=== PATIENT | female | born 1950 | race Caucasian/White ===

== ENCOUNTER 2018-03-21 14:52 | Inpatient (IN) | payer MEDICARE ==
[~2018-03-21] VITALS: Ht 154.9 cm; Wt 55.9 kg
[~2018-03-21 14:52] MED LIST: BACL10TA PO
[2018-03-21] MEDS ORDERED: ONDANSETRON HCL 4 MG/2 ML VIAL ONE (15:35)
[2018-03-21] MEDS ORDERED: MORPHINE SULFATE 4 MG/1ML SYG ONE ×2 (15:36→18:13)
[2018-03-21 15:41] LABS: BASOPHILS % (AUTO) 1.3 % (0.0-5.0); EOSINOPHILS % (AUTO) 0.7 % (0.0-8.0); HEMATOCRIT 36.2 % (36-48); MEAN CORPUSCULAR HEMOGLOBIN 33.1 pg (27.0-33.0); MEAN CORPUSCULAR VOLUME 97.3 fL (79-99); MONOCYTES % (AUTO) 7.5 % (3.0-13.0); NEUTROPHILS % (AUTO) 58.5 % (40.0-77.0); PLATELET COUNT (AUTO) 402 K/uL (130-400); RED BLOOD CELL COUNT(AUTO) 3.72 MIL/uL (4.00-5.50); RED CELL DISTRIBUTION WIDTH 16.6 % (11.0-15.5); WHITE BLOOD COUNT (AUTO) 6.7 K/uL (4.8-10.8)
[2018-03-21 16:02] LABS: APPEARANCE,URINE Clear (CLEAR); BILIRUBIN,URINE Negative (NEGATIVE); COLOR,URINE Yellow (YELLOW); GLUCOSE, URINE (UA) Negative (NEGATIVE); KETONES,URINE Negative (NEGATIVE); LEUKOCYTE ESTERASE ,URINE Trace (NEGATIVE); NITRATE,URINE Negative (NEGATIVE); OCCULT BLOOD,URINE Negative (NEGATIVE); PROTEIN,URINE Negative (NEGATIVE); UROBILINOGEN,URINE 0.2 mg/dL (0.2-1.0)
[2018-03-21 16:13] LABS: CREATININE 1.1 mg/dL (0.5-1.5); POTASSIUM 3.7 mmol/L (3.5-5.1)
[2018-03-21 16:45] LABS: BACTERIA,URINE Rare /HPF (None Seen); RBC,URINE 0-1 /HPF (0-1); SQUAMOUS EPITHELIAL CELL,UR Few /HPF (0-2); WBC,URINE 0-1 /HPF (0-1)
[2018-03-21 17:12] LABS: ERYTHROCYTE SEDIMENTATION RATE 25 MM/HR (0-15)
[2018-03-21] MEDS ORDERED: LORAZEPAM 2 MG/ML 1 ML VIAL ONE (18:13)
[2018-03-21 22:00] VITALS: BP 139/80
[2018-03-21] MEDS ORDERED: ACETAMINOPHEN 325 MG TAB PO PRN (22:45)
[2018-03-21] MEDS ORDERED: ONDANSETRON HCL MDV 20ML 2 MG/ML VIAL IVP PRN (22:45)
[2018-03-21] MEDS ORDERED: CLONIDINE HCL 0.1 MG TABLET PO PRN (22:45)
[2018-03-21] MEDS ORDERED: LACTULOSE 20 GM/30 ML UDCUP PO PRN (22:45)
[2018-03-21] MEDS: MORPHINE SULFATE 2 MG/ML 1ML SYG IM PRN (23:10)
[2018-03-22 00:10] VITALS: BP 131/77
[2018-03-22] MEDS ORDERED: BACL10TA PO (01:51)
[2018-03-22] MEDS ORDERED: ZOLP10TA2 PO (01:53)
[2018-03-22] MEDS ORDERED: LEVE1000 PO (01:56)
[2018-03-22] MEDS: KETOROLAC TROMETHAMINE 15MG/ML IV PRN ×2 (03:12→17:33)
[2018-03-22 03:15] VITALS: BP 112/62
[2018-03-22] MEDS: MORPHINE SULFATE 2 MG/ML 1ML SYG IM PRN (05:21)
[2018-03-22 08:01] VITALS: BP 136/72
[2018-03-22] MEDS: LEVETIRACETAM 500 MG TABLET PO SCH ×3 (09:00→20:03)
[2018-03-22] MEDS: BACLOFEN 10 MG TABLET PO SCH ×7 (09:00→20:03)
[2018-03-22 11:28] VITALS: BP 122/72
[2018-03-22] MEDS ORDERED: BACLOFEN 10 MG TABLET PO SCH ×2 (12:00→21:00)
[2018-03-22] MEDS ORDERED: MORPHINE SULFATE 4 MG/1ML SYG ONE ×2 (12:57→18:33)
[2018-03-22] MEDS: LORAZEPAM 2 MG/ML 1 ML VIAL IVP PRN (14:06)
[2018-03-22 15:54] VITALS: BP 121/63
[2018-03-22] MEDS ORDERED: FAMOTIDINE 20MG TAB 20 MG TAB PO SCH (17:15)
[2018-03-22 20:00] VITALS: BP 138/75
[2018-03-22] MEDS: GABAPENTIN 300 MG CAPSULE PO SCH (20:03)
[2018-03-22] MEDS: ZOLPIDEM TARTRATE 5 MG TAB PO SCH (20:03)
[2018-03-23] VITALS: BP 112/72
[2018-03-23] MEDS: LORAZEPAM 2 MG/ML 1 ML VIAL IVP PRN (02:16)
[2018-03-23 04:03] VITALS: BP 95/53
[2018-03-23 07:44] VITALS: BP 123/64
[2018-03-23] MEDS: FAMOTIDINE 20MG TAB 20 MG TAB PO SCH (08:22)
[2018-03-23] MEDS: KETOROLAC TROMETHAMINE 15MG/ML IV PRN ×2 (08:22→15:12)
[2018-03-23] MEDS: LEVETIRACETAM 500 MG TABLET PO SCH ×2 (08:22→19:35)
[2018-03-23] MEDS: BACLOFEN 10 MG TABLET PO SCH ×3 (08:22→19:34)
[2018-03-23] MEDS: DIAZEPAM 5 MG TABLET PO PRN ×2 (09:11→16:53)
[2018-03-23 11:25] VITALS: BP 94/49
[2018-03-23] MEDS: MORPHINE SULFATE 2 MG/ML 1ML SYG IM PRN (11:58)
[2018-03-23 16:30] VITALS: BP 113/64
[2018-03-23] MEDS ORDERED: ONDANSETRON HCL 4 MG/2 ML VIAL ONE (19:30)
[2018-03-23] MEDS: GABAPENTIN 300 MG CAPSULE PO SCH (19:34)
[2018-03-23] MEDS: ZOLPIDEM TARTRATE 5 MG TAB PO SCH (19:35)
[2018-03-23 20:05] VITALS: BP 103/63
[2018-03-24] VITALS (7 sets, daily range): BP systolic 94–112; BP diastolic 53–64
[2018-03-24] MEDS: LORAZEPAM 2 MG/ML 1 ML VIAL IVP PRN ×2 (00:46→14:04)
[2018-03-24] MEDS: KETOROLAC TROMETHAMINE 15MG/ML IV PRN ×4 (01:32→23:11)
[2018-03-24 06:05] LABS: HEMATOCRIT 32.4 % (36-48); MEAN CORPUSCULAR HGB CONC 34.8 g/dL (32.0-36.0); MEAN CORPUSCULAR VOLUME 97.5 fL (79-99); NUCLEATED RED BLOOD CELLS 0.1 % (0.0-0.19); PLATELET COUNT (AUTO) 314 K/uL (130-400); RED BLOOD CELL COUNT(AUTO) 3.32 MIL/uL (4.00-5.50); RED CELL DISTRIBUTION WIDTH 15.9 % (11.0-15.5); WHITE BLOOD COUNT (AUTO) 5.1 K/uL (4.8-10.8)
[2018-03-24 06:13] LABS: CREATININE 0.9 mg/dL (0.5-1.5); POTASSIUM 3.7 mmol/L (3.5-5.1)
[2018-03-24] MEDS: FAMOTIDINE 20MG TAB 20 MG TAB PO SCH (08:48)
[2018-03-24] MEDS: BACLOFEN 10 MG TABLET PO SCH ×3 (08:48→18:57)
[2018-03-24] MEDS: LEVETIRACETAM 500 MG TABLET PO SCH ×2 (08:48→18:57)
[2018-03-24] MEDS: DIAZEPAM 5 MG TABLET PO PRN ×2 (08:56→17:29)
[2018-03-24] MEDS: MORPHINE SULFATE 2 MG/ML 1ML SYG IM PRN ×2 (10:08→19:15)
[2018-03-24] MEDS: GABAPENTIN 300 MG CAPSULE PO SCH (18:57)
[2018-03-24] MEDS: ZOLPIDEM TARTRATE 5 MG TAB PO SCH (18:57)
[2018-03-25] MEDS: MORPHINE SULFATE 2 MG/ML 1ML SYG IM PRN (00:13)
[2018-03-25 03:20] VITALS: BP 108/54
[2018-03-25] MEDS: MORPHINE SULFATE 2 MG/ML 1ML SYG IVP PRN ×4 (05:30→22:19)
[2018-03-25] MEDS: KETOROLAC TROMETHAMINE 15MG/ML IV PRN (06:10)
[2018-03-25 07:30] VITALS: BP 145/73
[2018-03-25] MEDS: BACLOFEN 10 MG TABLET PO SCH ×3 (07:35→19:48)
[2018-03-25] MEDS: LEVETIRACETAM 500 MG TABLET PO SCH ×2 (07:35→19:48)
[2018-03-25] MEDS: FAMOTIDINE 20MG TAB 20 MG TAB PO SCH (07:35)
[2018-03-25] MEDS: DIAZEPAM 5 MG TABLET PO PRN ×2 (07:36→16:45)
[2018-03-25 11:00] VITALS: BP 111/62
[2018-03-25] MEDS ORDERED: VENLAFAXINE HCL 75 MG TAB ONE (11:15)
[2018-03-25] MEDS: VENLAFAXINE HCL XR 37.5 MG CAP PO SCH (14:12)
[2018-03-25 16:00] VITALS: BP 109/63
[2018-03-25] MEDS: GABAPENTIN 300 MG CAPSULE PO SCH (19:48)
[2018-03-25] MEDS: ZOLPIDEM TARTRATE 5 MG TAB PO SCH (19:48)
[2018-03-25 20:00] VITALS: BP 137/76
[2018-03-26] VITALS: BP 117/71
[2018-03-26] MEDS: ACETAMINOPHEN 325 MG TAB PO PRN ×2 (03:03→10:40)
[2018-03-26] MEDS: KETOROLAC TROMETHAMINE 15MG/ML IV PRN ×2 (03:09→18:03)
[2018-03-26 04:00] VITALS: BP 137/79
[2018-03-26] MEDS: MORPHINE SULFATE 2 MG/ML 1ML SYG IVP PRN ×2 (06:42→20:04)
[2018-03-26 08:03] VITALS: BP 120/73
[2018-03-26] MEDS: DIAZEPAM 5 MG TABLET PO PRN ×2 (10:39→16:25)
[2018-03-26] MEDS: FAMOTIDINE 20MG TAB 20 MG TAB PO SCH (10:40)
[2018-03-26] MEDS: BACLOFEN 10 MG TABLET PO SCH ×3 (10:41→20:04)
[2018-03-26] MEDS: LEVETIRACETAM 500 MG TABLET PO SCH ×2 (10:41→20:04)
[2018-03-26] MEDS: VENLAFAXINE HCL XR 37.5 MG CAP PO SCH (10:41)
[2018-03-26 15:47] VITALS: BP 128/73
[2018-03-26 20:04] VITALS: BP 146/84
[2018-03-26] MEDS: GABAPENTIN 300 MG CAPSULE PO SCH (20:04)
== END 2018-03-26 20:22 | disposition short-term general hospital (02) | DRG 552 ==
LOC: EDH 14:52 → EDHIP 17:40 → OBSVTOIN 17:40 → WSH 22:00 → 4AH 03-22 08:45
PROVIDERS: ADMIT Family Medicine; ATTEND Family Medicine
DX: M48.061 Spinal stenosis, lumbar region without neurogenic claudication (principal); M41.9 Scoliosis, unspecified; F41.1 Generalized anxiety disorder; G40.909 Epilepsy, unspecified, not intractable, without status epilepticus; M54.10 Radiculopathy, site unspecified; Z86.73 Personal history of transient ischemic attack (TIA), and cerebral infarction without residual deficits
CPT/HCPCS: 36415; 72110; 72148; 80048; 81001; 85025; 85027; 85651; J1885; J2060; J2270; J2405

== ENCOUNTER 2018-04-01 15:21 | Inpatient (IN) | payer MEDICARE ==
[~2018-04-01] VITALS: Ht 157.5 cm; Wt 54.4 kg
[~2018-04-01 15:21] MED LIST changes: +LEVE1000 PO; +ZOLP10TA2 PO
[2018-04-01] MEDS ORDERED: KETOROLAC TROMETHAMINE 30MG/ML ONE (15:58)
[2018-04-01 18:40] LABS: BASOPHILS % (AUTO) 0.8 % (0.0-5.0); EOSINOPHILS % (AUTO) 1.5 % (0.0-8.0); HEMATOCRIT 38.1 % (36-48); LYMPHOCYTES % (AUTO) 21.5 % (21.0-51.0); MEAN CORPUSCULAR HEMOGLOBIN 32.6 pg (27.0-33.0); MEAN CORPUSCULAR HGB CONC 33.7 g/dL (32.0-36.0); MEAN CORPUSCULAR VOLUME 96.7 fL (79-99); MONOCYTES % (AUTO) 9.1 % (3.0-13.0); NEUTROPHILS % (AUTO) 67.1 % (40.0-77.0); PLATELET COUNT (AUTO) 360 K/uL (130-400); RED BLOOD CELL COUNT(AUTO) 3.95 MIL/uL (4.00-5.50); RED CELL DISTRIBUTION WIDTH 15.5 % (11.0-15.5); WHITE BLOOD COUNT (AUTO) 7.8 K/uL (4.8-10.8)
[2018-04-01] MEDS ORDERED: ZIPRASIDONE MESYLATE 20 MG/VIAL IM ONE ×2 (18:44→18:46)
[2018-04-01 18:46] LABS: CREATININE 1.1 mg/dL (0.5-1.5); POTASSIUM 4.1 mmol/L (3.5-5.1)
[2018-04-01 18:51] LABS: ALBUMIN 3.5 g/dL (3.5-5.0); BILIRUBIN,TOTAL 0.6 mg/dL (0.2-1.0); TOTAL PROTEIN, SERUM 7.3 g/dL (6.0-8.3)
[2018-04-02 05:50] LABS: ALBUMIN 3.1 g/dL (3.5-5.0); BILIRUBIN,TOTAL 0.6 mg/dL (0.2-1.0); CREATININE 0.8 mg/dL (0.5-1.5); POTASSIUM 3.6 mmol/L (3.5-5.1); TOTAL PROTEIN, SERUM 6.6 g/dL (6.0-8.3)
[2018-04-02 06:20] LABS: BASOPHILS % (AUTO) 0.6 % (0.0-5.0); EOSINOPHILS % (AUTO) 1.3 % (0.0-8.0); MEAN CORPUSCULAR HEMOGLOBIN 33.3 pg (27.0-33.0); MEAN CORPUSCULAR HGB CONC 34.3 g/dL (32.0-36.0); MEAN CORPUSCULAR VOLUME 97.1 fL (79-99); MONOCYTES % (AUTO) 8.1 % (3.0-13.0); PLATELET COUNT (AUTO) 308 K/uL (130-400); RED CELL DISTRIBUTION WIDTH 15.3 % (11.0-15.5); WHITE BLOOD COUNT (AUTO) 8.5 K/uL (4.8-10.8)
[2018-04-02 07:45] VITALS: BP 143/63
[2018-04-02] MEDS: SODIUM CHLORIDE 0.9% 1000ML 1,000 ML IV SCH ×2 (08:35→20:48)
[2018-04-02] MEDS: FAMOTIDINE/PF 20 MG/2 ML VIAL IV SCH ×2 (09:26→20:50)
[2018-04-02] MEDS: ENOXAPARIN SODIUM 40 MG/0.4 ML SYRINGE SQ SCH (09:26)
[2018-04-02] MEDS ORDERED: BACL10TA PO (11:11)
[2018-04-02] MEDS ORDERED: LEVE10006 PO (11:11)
[2018-04-02] MEDS ORDERED: GABA-531 PO (11:11)
[2018-04-02] MEDS ORDERED: ZOLP5TAB8 PO (11:11)
[2018-04-02] MEDS ORDERED: DIAZ10TA4 PO (11:11)
[2018-04-02] MEDS ORDERED: VENL150T3 PO (11:11)
[2018-04-02] MEDS ORDERED: ACET1TAB27 PO (11:11)
[2018-04-02] MEDS ORDERED: DIAZEPAM 5 MG TABLET PO PRN (11:45)
[2018-04-02 12:00] VITALS: BP 145/48
[2018-04-02] MEDS: GABAPENTIN 300 MG CAPSULE PO SCH ×2 (14:39→20:49)
[2018-04-02] MEDS: BACLOFEN 10 MG TABLET PO SCH ×2 (14:39→20:49)
[2018-04-02 16:00] VITALS: BP 135/75
[2018-04-02 19:15] VITALS: BP 138/75
[2018-04-02] MEDS: ZOLPIDEM TARTRATE 5 MG TAB PO SCH (20:49)
[2018-04-02] MEDS: LEVETIRACETAM 500 MG TABLET PO SCH (20:49)
[2018-04-03 05:30] VITALS: BP 106/67
[2018-04-03 08:00] VITALS: BP 104/60
[2018-04-03] MEDS ORDERED: VENLAFAXINE HCL 150 MG PO SCH (09:00)
[2018-04-03] MEDS ORDERED: VENLAFAXINE HCL XR 150 MG CAP PO SCH (09:00)
[2018-04-03] MEDS ORDERED: ACETAMINOPHEN PO PRN (09:00)
[2018-04-03] MEDS ORDERED: COD PO PRN (09:00)
[2018-04-03] MEDS: VENLAFAXINE HCL XR 37.5 MG CAP PO SCH (11:33)
[2018-04-03] MEDS: BACLOFEN 10 MG TABLET PO SCH ×3 (11:35→20:32)
[2018-04-03] MEDS: ENOXAPARIN SODIUM 40 MG/0.4 ML SYRINGE SQ SCH (11:35)
[2018-04-03] MEDS: GABAPENTIN 300 MG CAPSULE PO SCH ×3 (11:35→20:32)
[2018-04-03] MEDS: FAMOTIDINE/PF 20 MG/2 ML VIAL IV SCH ×2 (11:36→20:33)
[2018-04-03] MEDS: LEVETIRACETAM 500 MG TABLET PO SCH ×2 (11:36→20:33)
[2018-04-03] MEDS: LIDOCAINE 5% TOPICAL PATCH TP SCH (11:37)
[2018-04-03 12:00] VITALS: BP 111/66
[2018-04-03 16:00] VITALS: BP 125/73
[2018-04-03 20:00] VITALS: BP 144/82
[2018-04-03] MEDS: ZOLPIDEM TARTRATE 5 MG TAB PO SCH (20:33)
[2018-04-04] VITALS: BP 132/86
[2018-04-04 04:00] VITALS: BP 138/80
[2018-04-04] MEDS: LEVETIRACETAM 500 MG TABLET PO SCH (09:55)
[2018-04-04] MEDS: VENLAFAXINE HCL XR 37.5 MG CAP PO SCH (09:55)
[2018-04-04] MEDS: GABAPENTIN 300 MG CAPSULE PO SCH ×2 (09:55→14:05)
[2018-04-04] MEDS: BACLOFEN 10 MG TABLET PO SCH ×2 (09:56→14:05)
[2018-04-04] MEDS: FAMOTIDINE/PF 20 MG/2 ML VIAL IV SCH (09:56)
[2018-04-04] MEDS: LIDOCAINE 5% TOPICAL PATCH TP SCH (09:57)
[2018-04-04] MEDS: ENOXAPARIN SODIUM 40 MG/0.4 ML SYRINGE SQ SCH (09:57)
[2018-04-04 12:00] VITALS: BP 139/78
[2018-04-04 16:04] VITALS: BP 127/74
== END 2018-04-04 19:06 | DRG 552 ==
LOC: EDH 15:21 → EDHIP 18:55 → 4BH 04-02 07:43
PROVIDERS: ADMIT Internal Medicine Nephrology; ATTEND Internal Medicine Nephrology
DX: M48.061 Spinal stenosis, lumbar region without neurogenic claudication (principal); R56.9 Unspecified convulsions; G89.29 Other chronic pain; M54.5 Low back pain; Z86.010 Personal history of colon polyps
CPT/HCPCS: 36415; 80053; 85025; 93005; 97039; J1650; J1885; J3486; J3490; J7030

== ENCOUNTER 2018-04-07 11:51 | Inpatient (IN) | payer MEDICARE ==
[~2018-04-07] VITALS: Ht 157.5 cm; Wt 60.1 kg
[2018-04-07] VITALS (14 sets, daily range): BP systolic 84–163; BP diastolic 54–87
[~2018-04-07 11:51] MED LIST changes: +ACET1TAB27 PO; +DIAZ10TA4 PO; +GABA-531 PO; +LEVE10006 PO; +VENL150T3 PO; +ZOLP5TAB8 PO
[2018-04-07] MEDS ORDERED: PROPOFOL 1000 MG/100 ML 100 ML IV ONE (11:54)
[2018-04-07] MEDS ORDERED: MIDAZOLAM HCL 5 MG/ML 2ML VIAL IV ONE (11:54)
[2018-04-07] MEDS ORDERED: FENTANYL CITRATE PF 50 MCG/1 ML 2ML VIAL ONE (12:08)
[2018-04-07 12:22] LABS: BASOPHILS % (AUTO) 0.4 % (0.0-5.0); EOSINOPHILS % (AUTO) 1.8 % (0.0-8.0); LYMPHOCYTES % (AUTO) 9.8 % (21.0-51.0); MEAN CORPUSCULAR HEMOGLOBIN 35.1 pg (27.0-33.0); MEAN CORPUSCULAR HGB CONC 35.4 g/dL (32.0-36.0); MEAN CORPUSCULAR VOLUME 99.2 fL (79-99); MONOCYTES % (AUTO) 9.1 % (3.0-13.0); NEUTROPHILS % (AUTO) 78.9 % (40.0-77.0); PLATELET COUNT (AUTO) 308 K/uL (130-400); RED BLOOD CELL COUNT(AUTO) 3.33 MIL/uL (4.00-5.50); RED CELL DISTRIBUTION WIDTH 15.1 % (11.0-15.5); WHITE BLOOD COUNT (AUTO) 10.2 K/uL (4.8-10.8)
[2018-04-07 12:27] LABS: AMPHET/METH SCREEN,URINE NEGATIVE (NEGATIVE); BARBITURATE SCREEN, URINE NEGATIVE (NEGATIVE); BENZODIAZEPINES SCREEN,URINE POSITIVE (NEGATIVE); CANNABINOID SCREEN,URINE NEGATIVE (NEGATIVE); COCAINE SCREEN,URINE NEGATIVE (NEGATIVE); OPIATE SCREEN,URINE POSITIVE (NEGATIVE); PHENCYCLIDINE SCREEN,URINE NEGATIVE (NEGATIVE)
[2018-04-07 12:38] LABS: CREATININE 1.2 mg/dL (0.5-1.5); POTASSIUM 3.3 mmol/L (3.5-5.1)
[2018-04-07 12:42] LABS: ABG BASE EXCESS 4.5 mmol/L (-2.0-3.0); ABG HCO3 25.1 mmol/L (21.0-28.0); ABG OXYGEN SATURATION 99.3 % (95.0-99.0); ABG PCO2 26 mmHg (32-45)
[2018-04-07 12:46] LABS: INR 1.02 (0.85-1.15); PARTIAL THROMBOPLASTIN TIME 30.7 SEC (26.3-35.5); PROTHROMBIN TIME 10.7 SEC (9.6-11.6)
[2018-04-07 12:53] LABS: ALBUMIN 2.6 g/dL (3.5-5.0); BILIRUBIN,TOTAL 0.4 mg/dL (0.2-1.0); CREATINE KINASE MB 0.7 ng/mL (0.5-3.6); TOTAL PROTEIN, SERUM 5.9 g/dL (6.0-8.3)
[2018-04-07] MEDS ORDERED: SODIUM CHLORIDE 0.9% 1000ML 1,000 ML IV ONE (13:04)
[2018-04-07] MEDS ORDERED: DEXTROSE 5 % AND 0.9 % NACL 1,000 ML IV ONE (14:09)
[2018-04-07] MEDS: DEXTROSE 5 % AND 0.9 % NACL 1,000 ML IV SCH (16:30)
[2018-04-07] MEDS ORDERED: POTASSIUM CHLORIDE 20 MEQ ERTAB PO PRN ×3 (17:00)
[2018-04-07] MEDS ORDERED: POTASSIUM CHLORIDE 20MEQ/100ML 100 ML IV PRN ×2 (17:00)
[2018-04-07] MEDS ORDERED: POTASSIUM CHLORIDE 10% ELIXIR 20 MEQ/15 ML UDCUP PO PRN ×2 (17:00)
[2018-04-07] MEDS ORDERED: LIDOCAINE HCL-MPF 1% 2ML VIAL IVP PRN ×3 (17:00)
[2018-04-07] MEDS: POTASSIUM CHLORIDE 20MEQ/100ML 100 ML IV PRN (18:38)
[2018-04-07] MEDS: HEPARIN SODIUM 5000UNIT/ML 1ML VIAL SQ SCH (21:11)
[2018-04-08] VITALS (24 sets, daily range): BP systolic 98–165; BP diastolic 55–97
[2018-04-08] MEDS: POTASSIUM CHLORIDE 20MEQ/100ML 100 ML IV PRN ×2 (00:32→06:35)
[2018-04-08] MEDS: DEXTROSE 5 % AND 0.9 % NACL 1,000 ML IV SCH ×3 (02:17→22:45)
[2018-04-08 04:12] LABS: HEMATOCRIT 31.8 % (36-48); MEAN CORPUSCULAR HEMOGLOBIN 33.4 pg (27.0-33.0); MEAN CORPUSCULAR HGB CONC 34.1 g/dL (32.0-36.0); MEAN CORPUSCULAR VOLUME 97.8 fL (79-99); PLATELET COUNT (AUTO) 299 K/uL (130-400); RED BLOOD CELL COUNT(AUTO) 3.25 MIL/uL (4.00-5.50); WHITE BLOOD COUNT (AUTO) 7.8 K/uL (4.8-10.8)
[2018-04-08 04:41] LABS: CREATININE 0.8 mg/dL (0.5-1.5); MAGNESIUM 1.7 mg/dL (1.80-2.40); PHOSPHORUS 2.9 mg/dL (2.5-4.9); POTASSIUM 3.5 mmol/L (3.5-5.1)
[2018-04-08] MEDS ORDERED: MAGNESIUM 2GM PREMIX 50ML 50 ML IV PRN (06:30)
[2018-04-08] MEDS ORDERED: MAGNESIUM 2GM PREMIX 50ML 50 ML IV ONE (06:36)
[2018-04-08] MEDS ORDERED: PROPOFOL 1000 MG/100 ML IV PRN (06:45)
[2018-04-08] MEDS ORDERED: PROPOFOL 1000 MG/100 ML 100 ML IV PRN (07:00)
[2018-04-08] MEDS: LEVETIRACETAM 750 MG in SODIUM CHLORIDE 0.9% 100 ML IV SCH ×2 (10:46→20:19)
[2018-04-08] MEDS: HEPARIN SODIUM 5000UNIT/ML 1ML VIAL SQ SCH ×2 (11:13→20:20)
[2018-04-08] MEDS: FAMOTIDINE/PF 20 MG/2 ML VIAL IV SCH (11:14)
[2018-04-08] MEDS ORDERED: COMPOUND IV MISC 1 EACH IVSOLN MISC PRN (11:45)
[2018-04-08] MEDS: METHADONE HCL 10 MG TABLET PO SCH ×2 (15:47→22:46)
[2018-04-08] MEDS: ZIPRASIDONE MESYLATE 20 MG/VIAL IM PRN ×2 (15:56→23:00)
[2018-04-08] MEDS ORDERED: MAGNESIUM 2GM PREMIX 50ML 50 ML IV SCH (16:30)
[2018-04-08] MEDS ORDERED: CLONIDINE 0.1 MG/ 24 HR PATCH TD SCH (16:30)
[2018-04-08] MEDS ORDERED: ALPRAZOLAM 0.25 MG TABLET PO SCH (16:30)
[2018-04-09] VITALS (24 sets, daily range): BP systolic 87–171; BP diastolic 48–97
[2018-04-09] MEDS: ALPRAZOLAM 0.25 MG TABLET PO SCH ×3 (02:36→17:11)
[2018-04-09 03:56] LABS: MEAN CORPUSCULAR HEMOGLOBIN 35.1 pg (27.0-33.0); MEAN CORPUSCULAR HGB CONC 35.8 g/dL (32.0-36.0); PLATELET COUNT (AUTO) 322 K/uL (130-400); RED BLOOD CELL COUNT(AUTO) 3.16 MIL/uL (4.00-5.50); RED CELL DISTRIBUTION WIDTH 15.2 % (11.0-15.5); WHITE BLOOD COUNT (AUTO) 11.4 K/uL (4.8-10.8)
[2018-04-09 04:14] LABS: ALBUMIN 2.4 g/dL (3.5-5.0); BILIRUBIN,TOTAL 0.4 mg/dL (0.2-1.0); CREATININE 0.9 mg/dL (0.5-1.5); MAGNESIUM 1.7 mg/dL (1.80-2.40); PHOSPHORUS 3.2 mg/dL (2.5-4.9); POTASSIUM 3.6 mmol/L (3.5-5.1)
[2018-04-09 04:56] LABS: ABG HCO3 23.2 mmol/L (21.0-28.0); ABG PCO2 31 mmHg (32-45)
[2018-04-09] MEDS: METHADONE HCL 10 MG TABLET PO SCH ×3 (06:48→23:36)
[2018-04-09] MEDS: DEXTROSE 5 % AND 0.9 % NACL 1,000 ML IV SCH (09:00)
[2018-04-09] MEDS: FAMOTIDINE/PF 20 MG/2 ML VIAL IV SCH (09:00)
[2018-04-09] MEDS: LEVETIRACETAM 750 MG in SODIUM CHLORIDE 0.9% 100 ML IV SCH (09:00)
[2018-04-09] MEDS: HEPARIN SODIUM 5000UNIT/ML 1ML VIAL SQ SCH ×2 (09:04→21:03)
[2018-04-09] MEDS: ZIPRASIDONE MESYLATE 20 MG/VIAL IM PRN ×2 (12:34→20:57)
[2018-04-09 14:21] LABS: ABG HCO3 22.8 mmol/L (21.0-28.0); ABG OXYGEN SATURATION 98.7 % (95.0-99.0); ABG PCO2 36 mmHg (32-45)
[2018-04-09] MEDS ORDERED: HYDRALAZINE HCL 20 MG/ML VIAL IV PRN (16:30)
[2018-04-09] MEDS ORDERED: FUROSEMIDE 10 MG/ML 2ML VIAL ONE (17:54)
[2018-04-09] MEDS: FUROSEMIDE 10 MG/ML 2ML VIAL IV SCH (17:57)
[2018-04-09] MEDS: IPRATROPIUM/ALBUTEROL SULFATE 3 ML SOLUTION IH SCH (18:12)
[2018-04-09] MEDS: LEVETIRACETAM 1,000 MG in SODIUM CHLORIDE 0.9% 100 ML IV SCH (20:57)
[2018-04-10] VITALS (24 sets, daily range): BP systolic 92–142; BP diastolic 54–89
[2018-04-10] MEDS: IPRATROPIUM/ALBUTEROL SULFATE 3 ML SOLUTION IH SCH ×5 (00:39→23:42)
[2018-04-10] MEDS: ALPRAZOLAM 0.25 MG TABLET PO SCH ×2 (01:43→10:53)
[2018-04-10 03:57] LABS: HEMATOCRIT 33.8 % (36-48); MEAN CORPUSCULAR HEMOGLOBIN 32.9 pg (27.0-33.0); MEAN CORPUSCULAR HGB CONC 33.9 g/dL (32.0-36.0); MEAN CORPUSCULAR VOLUME 96.9 fL (79-99); PLATELET COUNT (AUTO) 339 K/uL (130-400); RED BLOOD CELL COUNT(AUTO) 3.49 MIL/uL (4.00-5.50); RED CELL DISTRIBUTION WIDTH 14.9 % (11.0-15.5)
[2018-04-10 04:20] LABS: CREATININE 0.9 mg/dL (0.5-1.5); MAGNESIUM 1.9 mg/dL (1.80-2.40); PHOSPHORUS 5.1 mg/dL (2.5-4.9); POTASSIUM 3.4 mmol/L (3.5-5.1)
[2018-04-10] MEDS: FUROSEMIDE 10 MG/ML 2ML VIAL IV SCH ×2 (04:24→15:59)
[2018-04-10] MEDS: POTASSIUM CHLORIDE 20MEQ/100ML 100 ML IV PRN (07:27)
[2018-04-10] MEDS: FAMOTIDINE/PF 20 MG/2 ML VIAL IV SCH (08:26)
[2018-04-10] MEDS: METHADONE HCL 10 MG TABLET PO SCH ×2 (08:26→19:52)
[2018-04-10] MEDS: LEVETIRACETAM 1,000 MG in SODIUM CHLORIDE 0.9% 100 ML IV SCH ×2 (08:26→19:53)
[2018-04-10] MEDS: HEPARIN SODIUM 5000UNIT/ML 1ML VIAL SQ SCH ×2 (08:27→19:53)
[2018-04-10] MEDS ORDERED: ALPRAZOLAM 0.25 MG TABLET PO PRN (18:00)
[2018-04-10] MEDS: ZOSYN 3.375GM+NS 50ML 50 ML IV SCH (21:02)
[2018-04-10] MEDS ORDERED: WATER FOR INJECTION,STERILE 5 ML VIAL ONE (22:13)
[2018-04-10] MEDS: ZIPRASIDONE MESYLATE 20 MG/VIAL IM PRN (22:17)
[2018-04-11] VITALS (25 sets, daily range): BP systolic 90–153; BP diastolic 52–89
[2018-04-11] MEDS: FUROSEMIDE 10 MG/ML 2ML VIAL IV SCH ×2 (03:17→16:22)
[2018-04-11] MEDS: ZOSYN 3.375GM+NS 50ML 50 ML IV SCH ×3 (03:29→20:58)
[2018-04-11 03:49] LABS: HEMATOCRIT 32.6 % (36-48); MEAN CORPUSCULAR HEMOGLOBIN 33.9 pg (27.0-33.0); MEAN CORPUSCULAR HGB CONC 34.6 g/dL (32.0-36.0); PLATELET COUNT (AUTO) 342 K/uL (130-400); RED BLOOD CELL COUNT(AUTO) 3.33 MIL/uL (4.00-5.50); RED CELL DISTRIBUTION WIDTH 14.9 % (11.0-15.5); WHITE BLOOD COUNT (AUTO) 9.7 K/uL (4.8-10.8)
[2018-04-11] MEDS: IPRATROPIUM/ALBUTEROL SULFATE 3 ML SOLUTION IH SCH ×4 (06:59→23:30)
[2018-04-11] MEDS: METHADONE HCL 10 MG TABLET PO SCH ×2 (07:36→20:53)
[2018-04-11] MEDS: FAMOTIDINE/PF 20 MG/2 ML VIAL IV SCH (07:39)
[2018-04-11] MEDS: ZIPRASIDONE MESYLATE 20 MG/VIAL IM PRN ×2 (08:16→16:28)
[2018-04-11] MEDS: LEVETIRACETAM 1,000 MG in SODIUM CHLORIDE 0.9% 100 ML IV SCH ×2 (08:17→20:36)
[2018-04-11] MEDS: HEPARIN SODIUM 5000UNIT/ML 1ML VIAL SQ SCH ×2 (08:22→20:45)
[2018-04-11] MEDS: METOPROLOL TARTRATE 25 MG TAB PO SCH (20:53)
[2018-04-11] MEDS: QUETIAPINE FUMARATE 25 MG TAB PO SCH (21:46)
[2018-04-11] MEDS ORDERED: DEXTROSE 5 % AND 0.9 % NACL 1,000 ML IV ONE (23:37)
[2018-04-12] VITALS (7 sets, daily range): BP systolic 111–152; BP diastolic 68–81
[2018-04-12] MEDS: FUROSEMIDE 10 MG/ML 2ML VIAL IV SCH ×2 (05:00→17:05)
[2018-04-12] MEDS: ZOSYN 3.375GM+NS 50ML 50 ML IV SCH ×3 (05:00→21:05)
[2018-04-12] MEDS: ZIPRASIDONE MESYLATE 20 MG/VIAL IM PRN ×2 (05:01→21:20)
[2018-04-12 05:12] LABS: HEMATOCRIT 31.7 % (36-48); MEAN CORPUSCULAR HEMOGLOBIN 33.8 pg (27.0-33.0); MEAN CORPUSCULAR HGB CONC 34.8 g/dL (32.0-36.0); MEAN CORPUSCULAR VOLUME 97.2 fL (79-99); PLATELET COUNT (AUTO) 384 K/uL (130-400); RED BLOOD CELL COUNT(AUTO) 3.26 MIL/uL (4.00-5.50); RED CELL DISTRIBUTION WIDTH 14.7 % (11.0-15.5); WHITE BLOOD COUNT (AUTO) 8.4 K/uL (4.8-10.8)
[2018-04-12 05:19] LABS: CREATININE 0.9 mg/dL (0.5-1.5); POTASSIUM 3.7 mmol/L (3.5-5.1)
[2018-04-12] MEDS: IPRATROPIUM/ALBUTEROL SULFATE 3 ML SOLUTION IH SCH ×3 (06:18→18:47)
[2018-04-12] MEDS: QUETIAPINE FUMARATE 25 MG TAB PO SCH (09:00)
[2018-04-12] MEDS: METHADONE HCL 10 MG TABLET PO SCH (09:00)
[2018-04-12] MEDS: FAMOTIDINE/PF 20 MG/2 ML VIAL IV SCH (09:01)
[2018-04-12] MEDS: METOPROLOL TARTRATE 25 MG TAB PO SCH ×2 (09:01→21:08)
[2018-04-12] MEDS: LEVETIRACETAM 1,000 MG in SODIUM CHLORIDE 0.9% 100 ML IV SCH ×2 (13:16→21:18)
[2018-04-12] MEDS: HEPARIN SODIUM 5000UNIT/ML 1ML VIAL SQ SCH ×2 (13:29→21:08)
[2018-04-12] MEDS ORDERED: SODIUM CHLORIDE 0.9% 500ML 500 ML IV ONE (21:23)
[2018-04-13] MEDS: IPRATROPIUM/ALBUTEROL SULFATE 3 ML SOLUTION IH SCH ×5 (00:42→23:32)
[2018-04-13 03:00] VITALS: BP 125/65
[2018-04-13] MEDS: ZOSYN 3.375GM+NS 50ML 50 ML IV SCH ×3 (05:09→21:05)
[2018-04-13] MEDS: FUROSEMIDE 10 MG/ML 2ML VIAL IV SCH ×2 (05:09→16:51)
[2018-04-13 05:18] LABS: HEMATOCRIT 32.4 % (36-48); MEAN CORPUSCULAR HEMOGLOBIN 33.7 pg (27.0-33.0); MEAN CORPUSCULAR HGB CONC 34.3 g/dL (32.0-36.0); MEAN CORPUSCULAR VOLUME 98.4 fL (79-99); PLATELET COUNT (AUTO) 481 K/uL (130-400); RED BLOOD CELL COUNT(AUTO) 3.29 MIL/uL (4.00-5.50); RED CELL DISTRIBUTION WIDTH 14.5 % (11.0-15.5); WHITE BLOOD COUNT (AUTO) 7.8 K/uL (4.8-10.8)
[2018-04-13 05:44] LABS: ALBUMIN 2.4 g/dL (3.5-5.0); BILIRUBIN,TOTAL 0.4 mg/dL (0.2-1.0); CREATININE 0.9 mg/dL (0.5-1.5); POTASSIUM 3.3 mmol/L (3.5-5.1); TOTAL PROTEIN, SERUM 7.3 g/dL (6.0-8.3)
[2018-04-13 07:00] VITALS: BP 106/72
[2018-04-13] MEDS ORDERED: LACTULOSE 20 GM/30 ML UDCUP PO PRN (08:15)
[2018-04-13] MEDS: METHADONE HCL 10 MG TABLET PO SCH (08:30)
[2018-04-13] MEDS: FAMOTIDINE/PF 20 MG/2 ML VIAL IV SCH (08:30)
[2018-04-13] MEDS: POTASSIUM CHLORIDE 10% ELIXIR 20 MEQ/15 ML UDCUP PO PRN ×3 (08:31→21:06)
[2018-04-13] MEDS: QUETIAPINE FUMARATE 25 MG TAB PO SCH (08:31)
[2018-04-13] MEDS: METOPROLOL TARTRATE 25 MG TAB PO SCH ×2 (08:31→21:06)
[2018-04-13] MEDS: HEPARIN SODIUM 5000UNIT/ML 1ML VIAL SQ SCH ×2 (08:39→21:23)
[2018-04-13 11:00] VITALS: BP 118/77
[2018-04-13] MEDS: LEVETIRACETAM 1,000 MG in SODIUM CHLORIDE 0.9% 100 ML IV SCH ×2 (11:07→21:05)
[2018-04-13 16:00] VITALS: BP 115/77
[2018-04-13 19:15] VITALS: BP 122/73
[2018-04-13] MEDS: ZIPRASIDONE MESYLATE 20 MG/VIAL IM PRN (21:03)
[2018-04-13] MEDS: OLANZAPINE 5 MG TAB PO SCH (21:45)
[2018-04-13] MEDS ORDERED: OLANZAPINE 5 MG TAB ONE (21:46)
[2018-04-13 23:29] VITALS: BP 105/64
[2018-04-14] MEDS: FUROSEMIDE 10 MG/ML 2ML VIAL IV SCH ×2 (03:59→16:30)
[2018-04-14 04:00] VITALS: BP 119/86
[2018-04-14] MEDS: ZOSYN 3.375GM+NS 50ML 50 ML IV SCH ×3 (04:34→20:25)
[2018-04-14 05:47] LABS: BASOPHILS % (AUTO) 0.7 % (0.0-5.0)
[2018-04-14 05:52] LABS: CREATININE 0.9 mg/dL (0.5-1.5); POTASSIUM 4.1 mmol/L (3.5-5.1)
[2018-04-14 05:53] LABS: EOSINOPHILS % (AUTO) 1.9 % (0.0-8.0); HEMATOCRIT 35.5 % (36-48); LYMPHOCYTES % (AUTO) 14.8 % (21.0-51.0); MEAN CORPUSCULAR HEMOGLOBIN 33.8 pg (27.0-33.0); MEAN CORPUSCULAR HGB CONC 34.4 g/dL (32.0-36.0); MEAN CORPUSCULAR VOLUME 98.5 fL (79-99); NEUTROPHILS % (AUTO) 70.6 % (40.0-77.0); PLATELET COUNT (AUTO) 590 K/uL (130-400); RED CELL DISTRIBUTION WIDTH 14.7 % (11.0-15.5)
[2018-04-14 06:00] LABS: B-TYPE NATRIURETIC PEPTIDE 16 pg/mL (0-100)
[2018-04-14] MEDS: IPRATROPIUM/ALBUTEROL SULFATE 3 ML SOLUTION IH SCH ×4 (06:48→23:43)
[2018-04-14 07:40] VITALS: BP 104/70
[2018-04-14] MEDS: METOPROLOL TARTRATE 25 MG TAB PO SCH ×2 (10:42→20:26)
[2018-04-14] MEDS: LEVETIRACETAM 1,000 MG in SODIUM CHLORIDE 0.9% 100 ML IV SCH ×2 (10:42→20:30)
[2018-04-14] MEDS: QUETIAPINE FUMARATE 25 MG TAB PO SCH (10:42)
[2018-04-14] MEDS: FAMOTIDINE/PF 20 MG/2 ML VIAL IV SCH (10:42)
[2018-04-14] MEDS: METHADONE HCL 10 MG TABLET PO SCH (10:44)
[2018-04-14 11:30] VITALS: BP 136/87
[2018-04-14] MEDS: HEPARIN SODIUM 5000UNIT/ML 1ML VIAL SQ SCH ×2 (13:16→20:28)
[2018-04-14 16:00] VITALS: BP 134/77
[2018-04-14 19:34] VITALS: BP 130/72
[2018-04-14] MEDS: OLANZAPINE 5 MG TAB PO SCH (20:30)
[2018-04-14 23:40] VITALS: BP 142/77
[2018-04-15 03:25] VITALS: BP 135/77
[2018-04-15] MEDS: ZOSYN 3.375GM+NS 50ML 50 ML IV SCH ×3 (04:41→21:06)
[2018-04-15 06:08] LABS: BASOPHILS % (AUTO) 1.2 % (0.0-5.0); EOSINOPHILS % (AUTO) 1.5 % (0.0-8.0); HEMATOCRIT 31.2 % (36-48); LYMPHOCYTES % (AUTO) 25.8 % (21.0-51.0); MEAN CORPUSCULAR HEMOGLOBIN 34.1 pg (27.0-33.0); MEAN CORPUSCULAR HGB CONC 34.6 g/dL (32.0-36.0); MEAN CORPUSCULAR VOLUME 98.4 fL (79-99); MONOCYTES % (AUTO) 9.9 % (3.0-13.0); NEUTROPHILS % (AUTO) 61.6 % (40.0-77.0); NUCLEATED RED BLOOD CELLS 0.1 % (0.0-0.19); PLATELET COUNT (AUTO) 629 K/uL (130-400); RED BLOOD CELL COUNT(AUTO) 3.17 MIL/uL (4.00-5.50); RED CELL DISTRIBUTION WIDTH 14.6 % (11.0-15.5); WHITE BLOOD COUNT (AUTO) 10.4 K/uL (4.8-10.8)
[2018-04-15 06:10] LABS: CREATININE 0.8 mg/dL (0.5-1.5); POTASSIUM 3.6 mmol/L (3.5-5.1)
[2018-04-15] MEDS: POTASSIUM CHLORIDE 10% ELIXIR 20 MEQ/15 ML UDCUP PO PRN ×2 (06:22→11:16)
[2018-04-15] MEDS: IPRATROPIUM/ALBUTEROL SULFATE 3 ML SOLUTION IH SCH ×3 (06:47→18:33)
[2018-04-15] MEDS: LEVETIRACETAM 1,000 MG in SODIUM CHLORIDE 0.9% 100 ML IV SCH ×2 (10:39→21:06)
[2018-04-15] MEDS: METHADONE HCL 10 MG TABLET PO SCH (10:40)
[2018-04-15] MEDS: FAMOTIDINE/PF 20 MG/2 ML VIAL IV SCH (10:41)
[2018-04-15] MEDS: METOPROLOL TARTRATE 25 MG TAB PO SCH ×2 (10:41→21:06)
[2018-04-15] MEDS: QUETIAPINE FUMARATE 25 MG TAB PO SCH ×2 (10:41→21:00)
[2018-04-15] MEDS: HEPARIN SODIUM 5000UNIT/ML 1ML VIAL SQ SCH ×2 (10:49→21:14)
[2018-04-15 12:25] VITALS: BP 113/76
[2018-04-15 16:00] VITALS: BP 99/60
[2018-04-15 20:27] VITALS: BP 121/68
[2018-04-15] MEDS ORDERED: BACLOFEN 10 MG TABLET PO SCH (21:00)
[2018-04-15] MEDS: GABAPENTIN 300 MG CAPSULE PO SCH (21:17)
[2018-04-15] MEDS: OLANZAPINE 5 MG TAB PO SCH (21:45)
[2018-04-15] MEDS: DIAZEPAM 5 MG TABLET PO PRN (22:10)
[2018-04-16] VITALS: BP 96/50
[2018-04-16 04:00] VITALS: BP 109/65
[2018-04-16] MEDS: ZOSYN 3.375GM+NS 50ML 50 ML IV SCH (04:19)
[2018-04-16 06:15] LABS: BASOPHILS % (AUTO) 1.1 % (0.0-5.0); EOSINOPHILS % (AUTO) 3.9 % (0.0-8.0); LYMPHOCYTES % (AUTO) 29.4 % (21.0-51.0); MEAN CORPUSCULAR HEMOGLOBIN 35.8 pg (27.0-33.0); MEAN CORPUSCULAR HGB CONC 36.3 g/dL (32.0-36.0); MEAN CORPUSCULAR VOLUME 98.6 fL (79-99); MONOCYTES % (AUTO) 9.2 % (3.0-13.0); NEUTROPHILS % (AUTO) 56.4 % (40.0-77.0); PLATELET COUNT (AUTO) 562 K/uL (130-400); RED BLOOD CELL COUNT(AUTO) 2.94 MIL/uL (4.00-5.50); RED CELL DISTRIBUTION WIDTH 14.3 % (11.0-15.5); WHITE BLOOD COUNT (AUTO) 8.5 K/uL (4.8-10.8)
[2018-04-16 06:24] LABS: CREATININE 0.9 mg/dL (0.5-1.5); POTASSIUM 3.9 mmol/L (3.5-5.1)
[2018-04-16] MEDS: IPRATROPIUM/ALBUTEROL SULFATE 3 ML SOLUTION IH SCH ×5 (06:26→23:44)
[2018-04-16 08:16] VITALS: BP 101/60
[2018-04-16] MEDS ORDERED: VENLAFAXINE HCL XR 150 MG CAP PO SCH (09:00)
[2018-04-16 12:00] VITALS: BP 122/67
[2018-04-16] MEDS: FAMOTIDINE/PF 20 MG/2 ML VIAL IV SCH (12:22)
[2018-04-16] MEDS: LEVETIRACETAM 1,000 MG in SODIUM CHLORIDE 0.9% 100 ML IV SCH (12:22)
[2018-04-16] MEDS: HEPARIN SODIUM 5000UNIT/ML 1ML VIAL SQ SCH ×2 (12:23→20:55)
[2018-04-16] MEDS: GABAPENTIN 300 MG CAPSULE PO SCH ×3 (14:00→20:47)
[2018-04-16 16:00] VITALS: BP 124/74
[2018-04-16] MEDS: METHADONE HCL 10 MG TABLET PO SCH (17:24)
[2018-04-16] MEDS: VENLAFAXINE HCL XR 37.5 MG CAP PO SCH (17:24)
[2018-04-16] MEDS: METOPROLOL TARTRATE 25 MG TAB PO SCH ×2 (17:25→20:48)
[2018-04-16] MEDS: BACLOFEN 10 MG TABLET PO SCH ×2 (17:25→20:46)
[2018-04-16 19:00] VITALS: BP 93/57
[2018-04-16] MEDS: QUETIAPINE FUMARATE 25 MG TAB PO SCH (20:47)
[2018-04-16] MEDS: LEVETIRACETAM 500 MG TABLET PO SCH (20:50)
[2018-04-16] MEDS: OLANZAPINE 5 MG TAB PO SCH (20:55)
[2018-04-17] VITALS: BP 103/59
[2018-04-17 03:56] VITALS: BP 125/76
[2018-04-17] MEDS ORDERED: ACETAMINOPHEN 325 MG TAB PO PRN (04:30)
[2018-04-17] MEDS ORDERED: ACETAMINOPHEN 325 MG TAB ONE (04:30)
[2018-04-17 05:34] LABS: BASOPHILS % (AUTO) 1.1 % (0.0-5.0); EOSINOPHILS % (AUTO) 3.1 % (0.0-8.0); HEMATOCRIT 31.6 % (36-48); MEAN CORPUSCULAR HEMOGLOBIN 33.3 pg (27.0-33.0); MEAN CORPUSCULAR HGB CONC 33.9 g/dL (32.0-36.0); MEAN CORPUSCULAR VOLUME 98.3 fL (79-99); MONOCYTES % (AUTO) 8.6 % (3.0-13.0); NEUTROPHILS % (AUTO) 54.2 % (40.0-77.0); PLATELET COUNT (AUTO) 610 K/uL (130-400); RED BLOOD CELL COUNT(AUTO) 3.21 MIL/uL (4.00-5.50); RED CELL DISTRIBUTION WIDTH 14.2 % (11.0-15.5); WHITE BLOOD COUNT (AUTO) 6.1 K/uL (4.8-10.8)
[2018-04-17 05:41] LABS: CREATININE 0.9 mg/dL (0.5-1.5); POTASSIUM 4.3 mmol/L (3.5-5.1)
[2018-04-17] MEDS: IPRATROPIUM/ALBUTEROL SULFATE 3 ML SOLUTION IH SCH ×4 (06:21→23:50)
[2018-04-17 07:42] VITALS: BP 113/62
[2018-04-17] MEDS: METHADONE HCL 10 MG TABLET PO SCH (09:24)
[2018-04-17] MEDS: METOPROLOL TARTRATE 25 MG TAB PO SCH ×2 (09:24→20:48)
[2018-04-17] MEDS: VENLAFAXINE HCL XR 37.5 MG CAP PO SCH (09:24)
[2018-04-17] MEDS: BACLOFEN 10 MG TABLET PO SCH ×3 (09:24→20:48)
[2018-04-17] MEDS: GABAPENTIN 300 MG CAPSULE PO SCH ×3 (09:24→20:48)
[2018-04-17] MEDS: FAMOTIDINE 20MG TAB 20 MG TAB PO SCH (09:25)
[2018-04-17] MEDS: LEVETIRACETAM 500 MG TABLET PO SCH ×2 (09:25→20:47)
[2018-04-17] MEDS: HEPARIN SODIUM 5000UNIT/ML 1ML VIAL SQ SCH ×2 (09:34→20:57)
[2018-04-17 12:00] VITALS: BP 125/72
[2018-04-17 15:59] VITALS: BP 108/58
[2018-04-17 19:23] VITALS: BP 92/59
[2018-04-17] MEDS: OLANZAPINE 5 MG TAB PO SCH (19:42)
[2018-04-18] VITALS: BP 102/56
[2018-04-18] MEDS: DIAZEPAM 5 MG TABLET PO PRN (02:41)
[2018-04-18 04:00] VITALS: BP 98/56
[2018-04-18 05:23] LABS: BASOPHILS % (AUTO) 1.2 % (0.0-5.0); EOSINOPHILS % (AUTO) 2.1 % (0.0-8.0); HEMATOCRIT 28.3 % (36-48); LYMPHOCYTES % (AUTO) 34.7 % (21.0-51.0); MEAN CORPUSCULAR HEMOGLOBIN 34.7 pg (27.0-33.0); MEAN CORPUSCULAR HGB CONC 35.2 g/dL (32.0-36.0); MEAN CORPUSCULAR VOLUME 98.5 fL (79-99); MONOCYTES % (AUTO) 8.2 % (3.0-13.0); NEUTROPHILS % (AUTO) 53.8 % (40.0-77.0); NUCLEATED RED BLOOD CELLS 0.1 % (0.0-0.19); PLATELET COUNT (AUTO) 566 K/uL (130-400); RED BLOOD CELL COUNT(AUTO) 2.87 MIL/uL (4.00-5.50); RED CELL DISTRIBUTION WIDTH 14.3 % (11.0-15.5); WHITE BLOOD COUNT (AUTO) 5.9 K/uL (4.8-10.8)
[2018-04-18 05:37] LABS: CREATININE 0.8 mg/dL (0.5-1.5); POTASSIUM 3.9 mmol/L (3.5-5.1)
[2018-04-18] MEDS: IPRATROPIUM/ALBUTEROL SULFATE 3 ML SOLUTION IH SCH ×3 (06:47→19:03)
[2018-04-18 08:00] VITALS: BP 109/60
[2018-04-18] MEDS: LEVETIRACETAM 500 MG TABLET PO SCH ×2 (08:01→21:16)
[2018-04-18] MEDS: GABAPENTIN 300 MG CAPSULE PO SCH ×3 (08:01→21:16)
[2018-04-18] MEDS: VENLAFAXINE HCL XR 37.5 MG CAP PO SCH (08:02)
[2018-04-18] MEDS: BACLOFEN 10 MG TABLET PO SCH ×3 (08:03→21:16)
[2018-04-18] MEDS: FAMOTIDINE 20MG TAB 20 MG TAB PO SCH (08:03)
[2018-04-18] MEDS: METOPROLOL TARTRATE 25 MG TAB PO SCH ×2 (08:03→21:00)
[2018-04-18] MEDS: METHADONE HCL 10 MG TABLET PO SCH (08:03)
[2018-04-18] MEDS: HEPARIN SODIUM 5000UNIT/ML 1ML VIAL SQ SCH ×2 (08:04→21:17)
[2018-04-18 11:00] VITALS: BP 120/65
[2018-04-18 16:24] VITALS: BP 119/66
[2018-04-18 19:24] VITALS: BP 95/51
[2018-04-18] MEDS: OLANZAPINE 5 MG TAB PO SCH (21:17)
[2018-04-19] VITALS (7 sets, daily range): BP systolic 91–98; BP diastolic 54–62
[2018-04-19] MEDS: IPRATROPIUM/ALBUTEROL SULFATE 3 ML SOLUTION IH SCH ×4 (00:09→18:27)
[2018-04-19] MEDS: LEVETIRACETAM 500 MG TABLET PO SCH ×2 (09:35→22:01)
[2018-04-19] MEDS: VENLAFAXINE HCL XR 37.5 MG CAP PO SCH (09:35)
[2018-04-19] MEDS: METHADONE HCL 10 MG TABLET PO SCH (09:36)
[2018-04-19] MEDS: BACLOFEN 10 MG TABLET PO SCH ×3 (09:36→22:01)
[2018-04-19] MEDS: GABAPENTIN 300 MG CAPSULE PO SCH ×3 (09:36→22:01)
[2018-04-19] MEDS: FAMOTIDINE 20MG TAB 20 MG TAB PO SCH (09:36)
[2018-04-19] MEDS: METOPROLOL TARTRATE 25 MG TAB PO SCH (09:36)
[2018-04-19] MEDS: HEPARIN SODIUM 5000UNIT/ML 1ML VIAL SQ SCH ×2 (10:11→22:08)
[2018-04-19] MEDS ORDERED: LORAZEPAM 0.5 MG TABLET PO ONE (14:15)
[2018-04-20] MEDS: IPRATROPIUM/ALBUTEROL SULFATE 3 ML SOLUTION IH SCH ×4 (00:22→18:50)
[2018-04-20 03:25] VITALS: BP 135/76
[2018-04-20 05:53] LABS: HEMATOCRIT 29.9 % (36-48); LYMPHOCYTES % (AUTO) 25.9 % (21.0-51.0); MEAN CORPUSCULAR HEMOGLOBIN 34.3 pg (27.0-33.0); MEAN CORPUSCULAR HGB CONC 34.7 g/dL (32.0-36.0); MEAN CORPUSCULAR VOLUME 98.9 fL (79-99); MONOCYTES % (AUTO) 6.4 % (3.0-13.0); NEUTROPHILS % (AUTO) 64.7 % (40.0-77.0); PLATELET COUNT (AUTO) 591 K/uL (130-400); RED BLOOD CELL COUNT(AUTO) 3.02 MIL/uL (4.00-5.50); RED CELL DISTRIBUTION WIDTH 14.3 % (11.0-15.5); WHITE BLOOD COUNT (AUTO) 8.1 K/uL (4.8-10.8)
[2018-04-20 06:28] LABS: CREATININE 0.8 mg/dL (0.5-1.5); POTASSIUM 3.6 mmol/L (3.5-5.1)
[2018-04-20 07:30] VITALS: BP 101/55
[2018-04-20] MEDS: METOPROLOL TARTRATE 25 MG TAB PO SCH ×2 (09:00→21:13)
[2018-04-20] MEDS: HEPARIN SODIUM 5000UNIT/ML 1ML VIAL SQ SCH ×2 (09:26→21:22)
[2018-04-20] MEDS: LEVETIRACETAM 500 MG TABLET PO SCH ×2 (09:28→21:14)
[2018-04-20] MEDS: VENLAFAXINE HCL XR 37.5 MG CAP PO SCH (09:28)
[2018-04-20] MEDS: GABAPENTIN 300 MG CAPSULE PO SCH ×3 (09:29→21:12)
[2018-04-20] MEDS: METHADONE HCL 10 MG TABLET PO SCH (09:29)
[2018-04-20] MEDS: FAMOTIDINE 20MG TAB 20 MG TAB PO SCH (09:30)
[2018-04-20] MEDS: BACLOFEN 10 MG TABLET PO SCH ×3 (09:30→21:13)
[2018-04-20 11:00] VITALS: BP 98/60
[2018-04-20 16:00] VITALS: BP 102/64
[2018-04-20 19:15] VITALS: BP 116/65
[2018-04-20] MEDS: DIAZEPAM 5 MG TABLET PO PRN (19:44)
[2018-04-20 23:10] VITALS: BP 99/56
[2018-04-21 00:15] VITALS: BP 95/61
[2018-04-21] MEDS: IPRATROPIUM/ALBUTEROL SULFATE 3 ML SOLUTION IH SCH ×4 (01:18→18:48)
[2018-04-21 03:15] VITALS: BP 130/69
[2018-04-21 07:30] VITALS: BP 90/52
[2018-04-21] MEDS: LEVETIRACETAM 500 MG TABLET PO SCH ×2 (09:33→21:14)
[2018-04-21] MEDS: VENLAFAXINE HCL XR 37.5 MG CAP PO SCH (09:33)
[2018-04-21] MEDS: METHADONE HCL 10 MG TABLET PO SCH (09:34)
[2018-04-21] MEDS: METOPROLOL TARTRATE 25 MG TAB PO SCH ×2 (09:34→21:15)
[2018-04-21] MEDS: FAMOTIDINE 20MG TAB 20 MG TAB PO SCH (09:34)
[2018-04-21] MEDS: BACLOFEN 10 MG TABLET PO SCH ×3 (09:34→21:15)
[2018-04-21] MEDS: GABAPENTIN 300 MG CAPSULE PO SCH ×3 (09:34→21:15)
[2018-04-21] MEDS: HEPARIN SODIUM 5000UNIT/ML 1ML VIAL SQ SCH ×2 (09:47→21:22)
[2018-04-21 11:00] VITALS: BP 82/55
[2018-04-21 16:00] VITALS: BP 91/52
[2018-04-21 19:10] VITALS: BP 137/79
[2018-04-21] MEDS: DIAZEPAM 5 MG TABLET PO PRN (21:15)
[2018-04-22] MEDS: IPRATROPIUM/ALBUTEROL SULFATE 3 ML SOLUTION IH SCH ×5 (00:37→23:39)
[2018-04-22 04:10] VITALS: BP 101/63
[2018-04-22 06:43] LABS: BASOPHILS % (AUTO) 1.1 % (0.0-5.0); EOSINOPHILS % (AUTO) 2.5 % (0.0-8.0); HEMATOCRIT 27.8 % (36-48); LYMPHOCYTES % (AUTO) 36.1 % (21.0-51.0); MEAN CORPUSCULAR HEMOGLOBIN 34.6 pg (27.0-33.0); MEAN CORPUSCULAR HGB CONC 34.9 g/dL (32.0-36.0); NEUTROPHILS % (AUTO) 51.3 % (40.0-77.0); NUCLEATED RED BLOOD CELLS 0.1 % (0.0-0.19); PLATELET COUNT (AUTO) 535 K/uL (130-400); RED BLOOD CELL COUNT(AUTO) 2.81 MIL/uL (4.00-5.50); RED CELL DISTRIBUTION WIDTH 14.9 % (11.0-15.5); WHITE BLOOD COUNT (AUTO) 6.2 K/uL (4.8-10.8)
[2018-04-22 06:45] LABS: CREATININE 0.8 mg/dL (0.5-1.5); POTASSIUM 3.8 mmol/L (3.5-5.1)
[2018-04-22 07:00] VITALS: BP 95/52
[2018-04-22] MEDS: METOPROLOL TARTRATE 25 MG TAB PO SCH ×2 (08:45→20:28)
[2018-04-22] MEDS: FAMOTIDINE 20MG TAB 20 MG TAB PO SCH (08:45)
[2018-04-22] MEDS: LEVETIRACETAM 500 MG TABLET PO SCH ×2 (08:45→20:27)
[2018-04-22] MEDS: METHADONE HCL 10 MG TABLET PO SCH (08:46)
[2018-04-22] MEDS: HEPARIN SODIUM 5000UNIT/ML 1ML VIAL SQ SCH ×2 (08:54→20:33)
[2018-04-22] MEDS: GABAPENTIN 300 MG CAPSULE PO SCH ×3 (08:55→20:28)
[2018-04-22] MEDS: BACLOFEN 10 MG TABLET PO SCH ×3 (08:55→20:31)
[2018-04-22] MEDS: VENLAFAXINE HCL XR 37.5 MG CAP PO SCH (09:04)
[2018-04-22 11:00] VITALS: BP 96/63
[2018-04-22 15:51] VITALS: BP 93/60
[2018-04-22 19:00] VITALS: BP 97/57
[2018-04-22 23:00] VITALS: BP 101/57
[2018-04-23 03:00] VITALS: BP 102/63
[2018-04-23] MEDS: IPRATROPIUM/ALBUTEROL SULFATE 3 ML SOLUTION IH SCH ×3 (06:34→18:28)
[2018-04-23 07:10] VITALS: BP 103/69
[2018-04-23] MEDS: METOPROLOL TARTRATE 25 MG TAB PO SCH (08:08)
[2018-04-23] MEDS: METHADONE HCL 10 MG TABLET PO SCH (08:09)
[2018-04-23] MEDS: VENLAFAXINE HCL XR 37.5 MG CAP PO SCH (08:09)
[2018-04-23] MEDS: FAMOTIDINE 20MG TAB 20 MG TAB PO SCH (08:10)
[2018-04-23] MEDS: LEVETIRACETAM 500 MG TABLET PO SCH (08:10)
[2018-04-23] MEDS: BACLOFEN 10 MG TABLET PO SCH ×2 (08:11→15:37)
[2018-04-23] MEDS: GABAPENTIN 300 MG CAPSULE PO SCH ×2 (08:12→15:37)
[2018-04-23] MEDS: HEPARIN SODIUM 5000UNIT/ML 1ML VIAL SQ SCH (08:20)
[2018-04-23 11:00] VITALS: BP 110/63
[2018-04-23 15:37] VITALS: BP 94/59
== END 2018-04-23 20:20 | DRG 917 ==
LOC: EDH 11:51 → EDHIP 13:58 → 2CH 15:19 → 3CH 04-11 22:56
PROVIDERS: ADMIT Family Medicine; ATTEND Family Medicine
PROC: 5A1945Z Respiratory Ventilation, 24-96 Consecutive Hours (ICD-10-PCS; principal; 2018-04-07)
PROC: 0BH17EZ Insertion of Endotracheal Airway into Trachea, Via Natural or Artificial Opening (ICD-10-PCS; 2018-04-07)
PROC: 5A09357 Assistance with Respiratory Ventilation, Less than 24 Consecutive Hours, Continuous Positive Airway Pressure (ICD-10-PCS; 2018-04-08)
PROC: 5A09357 Assistance with Respiratory Ventilation, Less than 24 Consecutive Hours, Continuous Positive Airway Pressure (ICD-10-PCS; 2018-04-09)
PROC: 5A09357 Assistance with Respiratory Ventilation, Less than 24 Consecutive Hours, Continuous Positive Airway Pressure (ICD-10-PCS; 2018-04-10)
PROC: 5A09357 Assistance with Respiratory Ventilation, Less than 24 Consecutive Hours, Continuous Positive Airway Pressure (ICD-10-PCS; 2018-04-11)
DX: T42.4X1A Poisoning by benzodiazepines, accidental (unintentional), initial encounter (principal); J96.00 Acute respiratory failure, unspecified whether with hypoxia or hypercapnia; G92 Toxic encephalopathy; J69.0 Pneumonitis due to inhalation of food and vomit; E87.3 Alkalosis; E44.0 Moderate protein-calorie malnutrition; I50.30 Unspecified diastolic (congestive) heart failure; Z99.11 Dependence on respirator [ventilator] status; I50.32 Chronic diastolic (congestive) heart failure; F11.20 Opioid dependence, uncomplicated; T40.601A Poisoning by unspecified narcotics, accidental (unintentional), initial encounter; E87.6 Hypokalemia; G40.909 Epilepsy, unspecified, not intractable, without status epilepticus; T40.2X1A Poisoning by other opioids, accidental (unintentional), initial encounter; E83.42 Hypomagnesemia; M54.9 Dorsalgia, unspecified; G89.4 Chronic pain syndrome; E86.9 Volume depletion, unspecified; M48.00 Spinal stenosis, site unspecified; R53.81 Other malaise; Z74.01 Bed confinement status; R62.7 Adult failure to thrive; D64.9 Anemia, unspecified; F13.90 Sedative, hypnotic, or anxiolytic use, unspecified, uncomplicated; F60.7 Dependent personality disorder; F19.10 Other psychoactive substance abuse, uncomplicated; F39 Unspecified mood [affective] disorder; F32.9 Major depressive disorder, single episode, unspecified; F41.9 Anxiety disorder, unspecified; K63.5 Polyp of colon; Y92.89 Other specified places as the place of occurrence of the external cause; Z68.24 Body mass index [BMI] 24.0-24.9, adult; E87.8 Other disorders of electrolyte and fluid balance, not elsewhere classified; Z28.21 Immunization not carried out because of patient refusal
CPT/HCPCS: 31500; 36415; 36600; 70450; 70551; 71045; 80048; 80053; 80305; 82330; 82435; 82550; 82553; 82803; 82947; 82948; 83605; 83735; 83874; 83880; 84100; 84132; 84295; 84484; 85018; 85025; 85027; 85610; 85730; 92507; 92522; 92610; 93005; 93306; 94002; 94003; 94640; 94660; 94664; 94667; 94668; 97039; 99291; A4218; G0480; J1644; J1940; J1953; J2250; J2543; J2704; J3010; J3475; J3480; J3486; J3490; J7030; J7040; J7042

== ENCOUNTER 2019-02-16 20:53 | Emergency (ER) | payer MEDICARE ==
[~2019-02-16 20:53] MED LIST changes: -ACET1TAB27 PO; -BACL10TA PO; -DIAZ10TA4 PO; -LEVE10006 PO; -ZOLP10TA2 PO
[2019-02-16 21:38] LABS: APPEARANCE,URINE Clear (CLEAR); BILIRUBIN,URINE Negative (NEGATIVE); COLOR,URINE Yellow (YELLOW); GLUCOSE, URINE (UA) Negative (NEGATIVE); KETONES,URINE Negative (NEGATIVE); LEUKOCYTE ESTERASE ,URINE Large (NEGATIVE); NITRATE,URINE Negative (NEGATIVE); OCCULT BLOOD,URINE Negative (NEGATIVE); PROTEIN,URINE Negative (NEGATIVE); UROBILINOGEN,URINE 0.2 mg/dL (0.2-1.0)
[2019-02-16 21:53] LABS: EOSINOPHILS % (AUTO) 8.1 % (0.0-8.0); HEMATOCRIT 35.6 % (36-48); LYMPHOCYTES % (AUTO) 49.1 % (21.0-51.0); MEAN CORPUSCULAR HEMOGLOBIN 32.7 pg (27.0-33.0); MEAN CORPUSCULAR HGB CONC 33.6 g/dL (32.0-36.0); MEAN CORPUSCULAR VOLUME 97.2 fL (79-99); MONOCYTES % (AUTO) 9.3 % (3.0-13.0); NEUTROPHILS % (AUTO) 32.5 % (40.0-77.0); PLATELET COUNT (AUTO) 308 K/uL (130-400); RED BLOOD CELL COUNT(AUTO) 3.67 MIL/uL (4.00-5.50); RED CELL DISTRIBUTION WIDTH 14.1 % (11.0-15.5); WHITE BLOOD COUNT (AUTO) 5.4 K/uL (4.8-10.8)
[2019-02-16 22:04] LABS: BACTERIA,URINE Many /HPF (None Seen); RBC,URINE None Seen /HPF (0-1); SQUAMOUS EPITHELIAL CELL,UR 0-2 /HPF (0-2); WBC,URINE >100 /HPF (0-1)
[2019-02-16 22:04] LABS: INR 0.95 (0.85-1.15); PARTIAL THROMBOPLASTIN TIME 30.1 SEC (26.3-35.5)
[2019-02-16 22:12] LABS: CREATININE 0.8 mg/dL (0.5-1.5)
[2019-02-16 22:17] LABS: ALBUMIN 3.8 g/dL (3.5-5.0); BILIRUBIN,TOTAL 0.2 mg/dL (0.2-1.0); TOTAL PROTEIN, SERUM 7.2 g/dL (6.0-8.3)
[2019-02-16 22:49] LABS: B-TYPE NATRIURETIC PEPTIDE 34 pg/mL (0-100)
[2019-02-16] MEDS ORDERED: CLINDAMYCIN 600 MG/D5% WATER 50 ML IV ONE (23:20)
[2019-02-16] MEDS ORDERED: KETOROLAC TROMETHAMINE 15MG/ML ONE (23:20)
== END 2019-02-17 00:54 | disposition home or self-care (01) ==
LOC: EDH 20:53
DX: L03.115 Cellulitis of right lower limb (principal); Z98.890 Other specified postprocedural states; Z87.891 Personal history of nicotine dependence
CPT/HCPCS: 36415; 71045; 80053; 81001; 82550; 83880; 84484; 85025; 85610; 85730; 93005; 93971; 96365; 96375; 99285; J1885; J3490

== ENCOUNTER 2019-02-28 16:40 | Emergency (ER) | payer MEDICARE ==
[2019-02-28] MEDS ORDERED: CEFTRIAXONE SODIUM 1 GM ONE (18:04)
[2019-02-28 18:09] LABS: BASOPHILS % (AUTO) 1.2 % (0.0-5.0); EOSINOPHILS % (AUTO) 3.7 % (0.0-8.0); HEMATOCRIT 34.7 % (36-48); MEAN CORPUSCULAR HEMOGLOBIN 32.9 pg (27.0-33.0); MEAN CORPUSCULAR HGB CONC 33.6 g/dL (32.0-36.0); MEAN CORPUSCULAR VOLUME 97.7 fL (79-99); NEUTROPHILS % (AUTO) 59.1 % (40.0-77.0); PLATELET COUNT (AUTO) 324 K/uL (130-400); RED BLOOD CELL COUNT(AUTO) 3.55 MIL/uL (4.00-5.50); WHITE BLOOD COUNT (AUTO) 4.4 K/uL (4.8-10.8)
[2019-02-28 18:26] LABS: CREATININE 0.9 mg/dL (0.5-1.5); POTASSIUM 4.4 mmol/L (3.5-5.1)
[2019-02-28 18:26] LABS: APPEARANCE,URINE Clear (CLEAR); BILIRUBIN,URINE Negative (NEGATIVE); COLOR,URINE Yellow (YELLOW); GLUCOSE, URINE (UA) Negative (NEGATIVE); KETONES,URINE Negative (NEGATIVE); LEUKOCYTE ESTERASE ,URINE Negative (NEGATIVE); NITRATE,URINE Negative (NEGATIVE); OCCULT BLOOD,URINE Negative (NEGATIVE); PH,URINE 7.5 (5.0-8.0); PROTEIN,URINE Negative (NEGATIVE); UROBILINOGEN,URINE 0.2 mg/dL (0.2-1.0)
[2019-02-28 18:31] LABS: ALBUMIN 3.7 g/dL (3.5-5.0); BILIRUBIN,TOTAL 0.2 mg/dL (0.2-1.0); TOTAL PROTEIN, SERUM 7.1 g/dL (6.0-8.3)
== END 2019-02-28 19:46 | disposition home or self-care (01) ==
LOC: EDH 16:40
DX: R10.84 Generalized abdominal pain (principal); Z98.890 Other specified postprocedural states
CPT/HCPCS: 36415; 74177; 80053; 81003; 83690; 85025; 87088; 96374; 99285; J0696